=== PATIENT | male | born 1935 | race Caucasian/White ===

== ENCOUNTER 2019-06-14 10:44 | Observation (INO) | payer OTHER ==
[~2019-06-14] VITALS: Ht 170.2 cm; Wt 69.9 kg
[~2019-06-14 10:44] MED LIST: ACETAMINOPHEN500 MG PO; ASA325 PO; CARVEDILOL3.125 MG PO; CREON PO; DICYCLOMINE PO; NEXIUM40 MG PO; NIFEDIPINE ER30 M1 PO; NRC7.5T PO; OMEPRAZOLE40 MG PO; PRILOSEC40 MG PO; ULTRAM50 MG PO; Z.0.LISINOPRIL40 MG PO
[2019-06-14] MEDS ORDERED: SODIUM CHLORIDE 0.9% 1000ML 1,000 ML IV STA (10:54)
[2019-06-14 11:38] LABS: BASOPHILS # (AUTO) 0.1 (0.0-0.1); BASOPHILS % 0.6 % (0.0-1.0); EOSINOPHILS # (AUTO) 0.3 (0.0-0.4); EOSINOPHILS % 3.3 % (0.0-6.0); HEMATOCRIT 34.9 % (38.2-49.6); HEMOGLOBIN 11.7 g/dL (14.0-18.0); LYMPHOCYTES # (AUTO) 2.9 (1.0-3.2); LYMPHOCYTES % 34.8 % (18.0-39.1); MEAN CORPUSCULAR HEMOGLOBIN 29.7 pg (28-32); MEAN CORPUSCULAR HGB CONC 33.5 g/dL (31-35); MEAN CORPUSCULAR VOLUME 88.6 fL (81-99); MONOCYTES # (AUTO) 0.8 (0.2-0.8); MONOCYTES % 9.6 % (4.4-11.3); NEUTROPHILS # (AUTO) 4.3 (2.1-6.9); NEUTROPHILS % 51.3 % (38.7-80.0); PLATELET COUNT 316 x10e3/uL (140-360); RED BLOOD COUNT 3.94 x10e6/uL (4.3-5.7); RED CELL DISTRIBUTION WIDTH 12.8 % (11.7-14.4)
[2019-06-14 11:50] LABS: INR 0.98; PROTHROMBIN TIME 13.5 seconds (11.9-14.5)
[2019-06-14 11:51] LABS: PARTIAL THROMBOPLASTIN TIME 28.5 seconds (23.8-35.5)
[2019-06-14 11:59] LABS: ALBUMIN/GLOBULIN RATIO 0.8 (0.8-2.0); ANION GAP 16.3 mmol/L (8-16); CALCIUM 8.8 mg/dL (8.4-10.2); CREATININE, SERUM 1.41 mg/dL (0.72-1.25); POTASSIUM 3.3 mmol/L (3.5-5.1)
[2019-06-14 12:07] LABS: CREATINE KINASE MB 1.1 ng/mL (0-5.0)
[2019-06-14] MEDS: SODIUM CHLORIDE 0.9% 1000ML 1,000 ML IV SCH ×3 (12:15→19:31)
[2019-06-14] MEDS ORDERED: SODIUM CHLORIDE 0.9% 50ML 50 ML ONE (12:39)
[2019-06-14] MEDS ORDERED: IOPAMIDOL 370 MG/ML 200 ML INFUS..BTL INJ ONE (12:39)
--- NOTE | 2019-06-14 12:41 | Diagnostic Imaging Report ---
EXAMINATION: CHEST SINGLE (PORTABLE) INDICATION: ^ERMD ORDER ^[id number] ^1125 ^Y COMPARISON: Chest radiograph 03/24/2009 FINDINGS: AP view TUBES and LINES: None. LUNGS: Lungs are well inflated. Lungs are clear. There is no evidence of pneumonia or pulmonary edema. PLEURA: No pleural effusion or pneumothorax. HEART AND MEDIASTINUM: The cardiac silhouette is unremarkable. Tortuous thoracic aorta remains unchanged. BONES AND SOFT TISSUES: No acute osseous lesion. Soft tissues are unremarkable. UPPER ABDOMEN: No free air under the diaphragm. IMPRESSION: No acute thoracic abnormality. Signed by: Dr. Annelise Macias M.D. on 06/14/2019 12:37 PM
--- NOTE | 2019-06-14 14:45 | Diagnostic Imaging Report ---
EXAM: CT Abdomen and Pelvis WITH contrast INDICATION: ^ORDER PLACED BY ^[id number] ^1303 COMPARISON: None. TECHNIQUE: Abdomen and pelvis were scanned utilizing a multidetector helical scanner from the lung base to the pubic symphysis after administration of IV contrast. Coronal and sagittal reformations were obtained. Routine protocol was performed. Scan was performed when during portal venous phase. IV CONTRAST: 100 mL of Isovue-370 ORAL CONTRAST: None RADIATION DOSE: Total DLP: 2316.1 mGy*cm Estimated effective dose: (DLP x 0.015 x size factor) mSv COMPLICATIONS: None FINDINGS: LINES and TUBES: None. LOWER THORAX: Small hiatal hernia. Coronary artery calcifications. Lung bases are clear. HEPATOBILIARY: No focal hepatic lesions. No biliary ductal dilation. GALLBLADDER: Cholecystectomy. SPLEEN: No splenomegaly. PANCREAS: No focal masses or ductal dilatation. ADRENALS: No adrenal nodules KIDNEYS/URETERS: Mild cortical scarring of the right kidney. Kidneys enhance symmetrically. No hydronephrosis. Multiple bilateral renal cysts measuring up to 1.7 cm on the right and 1.7 cm on the left. Most of the series appear benign on series 6, image 35. No stones. GI TRACT: No abnormal distention, wall thickening, or evidence of bowel obstruction. Scattered diverticulosis throughout the colon without diverticulitis. Appendix is normal. PELVIC ORGANS/BLADDER: Severe distention of the urinary bladder, which extends into the upper abdomen at midline. There are multiple surgical clips at the level of the prostate. LYMPH NODES: No lymphadenopathy. VESSELS: Mild scattered atherosclerotic calcifications of the abdominal aorta and pelvic arteries with no aneurysm. PERITONEUM / RETROPERITONEUM: No free air or fluid. BONES: Status post right hip replacement. No destructive lytic or blastic lesions in the abdomen and pelvis. Moderate degenerative changes at L3-L4. SOFT TISSUES: Surgical clips in both scrotal sacs with associated small to moderate fat-containing inguinal hernias. IMPRESSION: 1. Surgical clips in the region of the prostate. Severe distention of the urinary bladder may represent the cause of this patient's abdominal pain. 2. Multiple bilateral renal cysts, most of them simple in appearance, except for a hyperdense cyst in the inferior right kidney that can be follow-up with CT or MRI with and without contrast renal mass protocol. 3. Scattered diverticulosis throughout the colon without diverticulitis. Signed by: Karena Sanford.D. on 06/14/2019 2:42 PM
[2019-06-14 15:05] LABS: AMPHETAMINES SCREEN,URINE NEGATIVE (NEGATIVE); BENZODIAZEPINES SCREEN,URINE NEGATIVE (NEGATIVE); PHENCYCLIDINE SCREEN,URINE NEGATIVE (NEGATIVE)
[2019-06-14 15:07] LABS: CLARITY,URINE SL CLOUDY (CLEAR); COLOR,URINE YELLOW (YELLOW); LEUKOCYTE ESTERASE ,URINE NEGATIVE (NEGATIVE); NITRITE,URINE NEGATIVE (NEGATIVE); PROTEIN,URINE DIPSTICK NEGATIVE (NEGATIVE)
[2019-06-14 15:08] LABS: BILIRUBIN,URINE NEGATIVE (NEGATIVE); KETONES,URINE NEGATIVE (NEGATIVE); RBC,URINE >50 /HPF (0-5); URINE UROBILINOGEN 0.2 mg/dL (0.2 - 1); WBC,URINE (MAN) 0-5 /HPF (0-5)
[2019-06-14 15:09] LABS: BACTERIA,URINE FEW /HPF
[2019-06-14 16:51] VITALS: BP 165/81
[2019-06-14 17:30] VITALS: BP 165/81
--- NOTE | 2019-06-14 17:49 | Diagnostic Imaging Report ---
Complete set of images made available for interpretation on 06/14/2019 5:40 PM. EXAMINATION: Head CT HISTORY: Dizziness COMPARISON: None. TECHNIQUE: Multidetector axial images were obtained without contrast from the foramen magnum to the vertex . The images were reconstructed using brain and bone algorithms. Thin section brain images were reformatted into coronal and sagittal planes. Image quality: Motion/streaking artifact limits the evaluation of the skull base and posterior cranial fossa. Dose modulation, iterative reconstruction, and/or weight based adjustment of the mA/kV was utilized to reduce the radiation dose to as low as reasonably achievable. FINDINGS: Parenchyma: 1. Few scattered and moderate confluent periventricular matter hypodensities, most likely nonspecific chronic microvascular ischemic changes. 2. No mass or hemorrhage. No CT evidence of acute territorial vascular insult. Extra-axial spaces:No abnormal density. No extra-axial fluid collections Brain volume: Normal for age. Ventricles: No hydrocephalus or displacement. Arteries: No density suggestive of thrombus. Dural sinuses: No abnormal density. Extra-axial spaces: No abnormal density. Foramen magnum: No mass, Chiari malformation, or basilar invagination. Sella: Mildly enlarged, due to an approximately 2 cm superior to inferior x 1.5 cm AP diameter lesion centered on the right side of the sella extending into the right sphenoid sinus and possibly within the right cavernous sinus, which may correspond to a pituitary microadenoma, no definite suprasellar extension is seen at this time. Paranasal/mastoid sinuses: Imaged portions unremarkable. Skull/Scalp: No lytic or blastic lesions. No fractures. IMPRESSION: 1. No acute intracranial abnormalities. 2. Mild chronic microvascular ischemic changes. 3. 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 Signed by: Dr. Ana Brannon M.D. on 06/14/2019 5:46 PM
[2019-06-14 18:23] LABS: CREATINE KINASE MB 1.5 ng/mL (0-5.0)
[2019-06-14 20:34] VITALS: BP 166/79
--- NOTE | 2019-06-14 20:42 | NUR ---
Spoke with Dr. Carter concerning patient's elevated blood pressure. Dr. Carter states that's fine. No new orders. Will continue to monitor.
[2019-06-14 21:47] VITALS: BP 166/79
[2019-06-15] VITALS (8 sets, daily range): BP systolic 152–187; BP diastolic 72–87
[2019-06-15 06:53] LABS: CREATINE KINASE MB 1.8 ng/mL (0-5.0)
--- NOTE | 2019-06-15 07:00 | NUR ---
BEDSIDE SHIFT REPORT RECEIVED FROM FLAP CURER RN. PT DENIES NEEDS AT THIS TIME.
[2019-06-15] MEDS ORDERED: NIFEDIPINE CR 30 MG TAB PO ONE (07:45)
--- NOTE | 2019-06-15 11:09 | History and Physical ---
PRIMARY CARE PHYSICIAN: Dr. Andrea Jesus. CHIEF COMPLAINT: Syncope, bradycardia, urinary retention, and generalized weakness. HISTORY OF PRESENT ILLNESS: An 84-year-old male, who came in with generalized weakness and low heart rate in the 50-60. The patient was on beta-gm. He is also found to have urinary retention. The patient has prostatectomy completely x2 years ago due to presence of prostate cancer. When he came in, he was retention and Dawkins catheter placed. The patient is doing a little bit better, but he is feeling weak. 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 The patient has also had multiple renal cysts. He has had Dawkins catheter placed now. He is stable. PAST MEDICAL HISTORY: Prostate cancer with radical prostatectomy, hypertension, and osteoarthritis. PAST SURGICAL HISTORY: Revision of right total hip arthroplasty and right total hip replacement, prostatectomy. SOCIAL HISTORY: The patient used to drink, but he quit many years ago. He does not smoke. No recreational drug use. ALLERGIES: NO KNOWN ALLERGIES. HOME MEDICATIONS: Nifedipine and questionable metoprolol. PHYSICAL EXAMINATION: VITAL SIGNS: Temperature is 96, blood pressure 186/86, pulse rate 56, and respiration 18. GENERAL: The patient is in no acute distress. He is awake. HEENT: Normocephalic and atraumatic. He is anicteric. NECK: Supple grossly. PULMONARY: Clear. CARDIOVASCULAR: Regular rate and rhythm. ABDOMEN: Soft. EXTREMITIES: No cyanosis or edema. Dawkins catheter in place. NEUROLOGIC: No focal deficit. LABORATORY DATA: Sodium is 141, potassium 3.3, chloride 106, bicarb 22, BUN 18, creatinine 0.4, and glucose 173. WBC 8.4, hemoglobin 11.7, hematocrit 34.5, and platelets is 316. IMPRESSION: 1. Urinary retention, may contribute to the patient's symptom of weakness and bradycardia with his syncope, but did not have any loss of consciousness. 2. Bradycardia, may be chronic. 3. Baseline hypertension. 4. Osteoarthritis. 5. 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 PLAN: MRI of the brain without contrast. Pituitary protocol. Repeat lab work. Blood pressure control. Consultation with Dr. Edward Millan. We will obtain a 2D echocardiogram. We will check the patient's hemoglobin A1c due to increase in blood sugar and also check the patient's TSH. MD VANESSA Daly /[id number]
[2019-06-15] MEDS: NIFEDIPINE CR 30 MG TAB PO SCH (20:12)
--- NOTE | 2019-06-15 20:52 | Consultation ---
DATE OF CONSULTATION: 06/15/2019 Urology Consultation Consultation is called by Dr. Carter. CHIEF COMPLAINT/REASON FOR CONSULTATION: Prostate cancer, urinary retention. HISTORY OF PRESENT ILLNESS: Mr. Peña is an 84-year-old male patient, who is noncompliant. He and his are in the room and are confusing historians at best. They state that he had a prostatectomy in [address] Millan did another surgery approximately 10 years ago. When the prostate was removed, he has not followed up and was last seen by Dr. Millan in January 2014. The patient denied any dysuria, denied any hematuria, was in urinary retention for over 1000 mL. PAST MEDICAL HISTORY: As above. Hypertension, diabetes mellitus, right total hip replacement. In the last clinic visit from Dr. Millan, there was a diagnosis of urethral stricture disease, prostate cancer, as well as BPH indicating the patient did not have the prostatectomy. MEDICATIONS: Please see MAR. ALLERGIES: NKDA. SOCIAL HISTORY: Denied smoking or drinking. FAMILY HISTORY: Denied urologic stones or malignancies. REVIEW OF SYSTEMS: Noncontributory, other than problems mentioned above for 12 organ systems. PHYSICAL EXAMINATION: GENERAL: Elderly male, in no acute distress. VITAL SIGNS: Currently, temperature 97.3, pulse 53, respirations 16, and blood pressure 175/83. HEENT: Sclerae anicteric. NECK: Supple. BACK: Without costovertebral angle tenderness bilaterally. ABDOMEN: Soft. It is nontender. It is nondistended. There is no palpable mass. No palpable hernias. No palpable groin adenopathy. GENITOURINARY: Normal male external genitalia. Dawkins catheter draining clear urine. EXTREMITIES: No edema. NEUROLOGIC: Moves all four extremities. PSYCHIATRIC: Alert and mood appropriate. SKIN: Intact. Normal color. PERTINENT LABORATORY DATA: Sodium 141, potassium 3.3, chloride 106, bicarb 22, BUN 18, creatinine 0.41, and glucose 173. Hemoglobin 11.7, hematocrit 34.5, platelet count 316,000, and white cell count 8000. IMPRESSION: 1. Prostate cancer. 2. Urethral stricture disease. 3. Urinary retention. 4. Hypertension. 5. Acute on chronic renal failure. 6. Hypokalemia. 7. Anemia. PLAN: Do not discontinue the Dawkins catheter noncompliance, consider imaging, elective cystoscopy. Thank you for allowing me to participate in the care of your patient. MD RICKY Ayala/MODL /[id number] cc: Blaise Carter MD
[2019-06-16] VITALS: BP 162/74
[2019-06-16 04:00] VITALS: BP 154/77
[2019-06-16 06:10] LABS: ALBUMIN 3.1 g/dL (3.5-5.0); ALBUMIN/GLOBULIN RATIO 0.7 (0.8-2.0); ANION GAP 13.5 mmol/L (8-16); CALCIUM 8.9 mg/dL (8.4-10.2); CHOL/HDL RATIO 5.6 (3.9-4.7); CREATININE, SERUM 1.23 mg/dL (0.72-1.25); POTASSIUM 3.5 mmol/L (3.5-5.1)
[2019-06-16 07:40] VITALS: BP 147/81
[2019-06-16 08:00] VITALS: BP 147/81
[2019-06-16] MEDS ORDERED: CEFTRIAXONE SOD 1 GM/NS 50 ML 50 ML IV SCH (09:00)
[2019-06-16] MEDS ORDERED: FAMOTIDINE 20 MG TAB PO SCH (09:00)
[2019-06-16] MEDS ORDERED: MAGNESIUM/ALUMINUM/SIMETHICONE 30 ML UDC PO SCH (09:00)
[2019-06-16] MEDS: NIFEDIPINE CR 30 MG TAB PO SCH (09:00)
[2019-06-16] MEDS ORDERED: PEPCID40 MG PO (09:02)
[2019-06-16] MEDS ORDERED: CIPRO250 MG PO (09:02)
[2019-06-16] MEDS ORDERED: TYLENOL # 31 EA PO (09:04)
[2019-06-16] MEDS ORDERED: ZOFRAN4 MG PO (09:04)
[2019-06-16] MEDS ORDERED: BISACODYL 10 MG SUPP PR ONE (11:00)
--- NOTE | 2019-06-16 11:05 | NUR ---
referral to outside md review group - md group suggesting outpatient
[2019-06-16 11:11] VITALS: BP 167/83
[2019-06-16 11:13] VITALS: BP 167/83
--- NOTE | 2019-06-16 13:08 | Diagnostic Imaging Report ---
MRI BRAIN WO HISTORY: Syncope COMPARISON: Head CT 06/14/2019 TECHNIQUE: Sagittal T2, axial T2, axial T1, axial T2/FLAIR, axial gradient echo (or susceptibility weighted), coronal T2/FLAIR, and axial diffusion weighted MR images of the brain were obtained without contrast. DISCUSSION: Scalp/bone marrow: Unremarkable. Brain sulci: Prominent. Ventricles: Compensatory dilatation. Sellar/Suprasellar region: Approximately 1.9 x 2.1 x 2.7 cm (sagittal by AP by transverse) slightly T2 hyperintense sellar mass expands the sella and slightly bulges into the suprasellar cistern. There is no significant mass effect on the optic chiasm. There is likely invasion of the right cavernous sinus. The pituitary stalk appears to be deviated towards the left Extra-axial spaces: No additional masses or fluid collections. Parenchyma: Scattered T2/FLAIR hyperintense foci throughout the supratentorial white matter and jadyn are likely chronic microvascular ischemic changes. Otherwise, no hemorrhage, or acute vascular insults. Vessels: Normal flow voids in major arteries and veins. Craniocervical junction: No abnormalities. Incidental findings: None. IMPRESSION: 1. No acute intracranial abnormalities. 2. 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 There is likely invasion of the right cavernous sinus. No significant mass effect on the optic chiasm. 3. Moderate supratentorial/pontine chronic microvascular ischemic change. 4. Mild generalized cerebral volume loss. Signed by: Dr. Hebert Snow M.D. on 06/16/2019 1:04 PM
--- NOTE | 2019-06-16 14:10 | NUR ---
pt discharged at this time. Pt is able to verbalize understanding of all discharge instructions and all follow up appointments. denies any pain at time of discharge. Pt demonstrated cole catheter care properly.
--- OUTSIDE RECORDS SUMMARY | 2019-06-20 12:02 | XMS REPORT ---
Author Author [facility] Address Unknown Phone Unavailable Care Team Providers Care Aircraft Servicer Name Role Phone DEBI SANDOVAL Unavailable Unavailable Problems This patient has no known problems. Allergies, Adverse Reactions, Alerts This patient has no known allergies or adverse reactions. Medications This patient has no known medications. Results Test Description Test Time Test Comments Text Results Atomic Results Result Comments MRI BRAIN WO 2019-06-16 12:58:00 [place] [address] Patient Name: RIKKI REID MR #: [id number] : 1935 Age/Sex: 84/M Req #: [id number] Adm Physician: DEBI SANDOVAL MD Ordered by: DEBI SANDOVAL MD Report #: [id number] Location: MED/SURG Room/Bed: [facility] Procedure: [id number] MRI/MRI BRAIN WO Exam Date: Exam Time: REPORT STATUS: Signed MRI BRAIN WO HISTORY: Syncope COMPARISON: Head CT 06/14/2019 TECHNIQUE: Sagittal T2, axial T2, axial T1, axial T2/FLAIR, axial gradient echo (or susceptibility weighted), coronal T2/FLAIR, and axial diffusion weighted MR images of the brain were obtained without contrast. DISCUSSION: Scalp/bone marrow: Unremarkable. Brain sulci: Prominent. Ventricles: Compensatory dilatation. Sellar/Suprasellar region: Approximately 1.9 x 2.1 x 2.7 cm (sagittal by AP by transverse) slightly T2 hyperintense sellar mass expands the sella and slightly bulges into the suprasellar cistern. There is no significant mass effect on the optic chiasm. There is likely invasion of the right cavernous sinus. The pituitary stalk appears to be deviated towards the left Extra-axial spaces: No additional masses or fluid collections. Parenchyma: Scattered T2/FLAIR hyperintense foci throughout the supratentorial white matter and jadyn are likely chronic microvascular ischemic changes. Otherwise, no hemorrhage, or acute vascular insults. Vessels: Normal flow voids in major arteries and veins. Craniocervical junction: No abnormalities. Incidental findings: None. IMPRESSION: 1. No acute intracranial abnormalities. 2. 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 There is likely invasion of the right cavernous sinus. No significant mass effect on the optic chiasm. 3. Moderate supratentorial/pontine chronic microvascular ischemic change. 4. Mild generalized cerebral volume loss. Signed by: Dr. Hebert Snow M.D. on 06/16/2019 1:04 PM Dictated By: HEBERT SNOW MD 1304 Transcribed By: ANDRIY on 06/16/19 1304 COPY TO: DEBI SANDOVAL MD CT BRAIN WO 2019-06-14 17:43:00 [place] [address] Patient Name: RIKKI REID MR #: [id number] : 1935 Age/Sex: 84/M Req #: [id number] Adm Physician: DEBI SANDOVAL MD Ordered by: MARCIA PARSONS MANAGER BUSINESS INTELLIGENCE Report #: [id number] Location: MED/SURG Room/Bed: [facility] Procedure: [id number] CT/CT BRAIN WO Exam Date: 06/14/19 Exam Time: 1253 REPORT STATUS: Signed Complete set of images made available for interpretation on 08/15/2018 5:40 PM. EXAMINATION: Head CT HISTORY: Dizziness COMPARISON: None. TECHNIQUE: Multidetector axial images were obtained without contrast from the foramen magnum to the vertex . The images were reconstructed using brain and bone algorithms. Thin section brain images were reformatted into coronal and sagittal planes. Image quality: Motion/streaking artifact limits the evaluation of the skull base and posterior cranial fossa. Dose modulation, iterative reconstruction, and/or weight based adjustment of the mA/kV was utilized to reduce the radiation dose to as low as reasonably achievable. FINDINGS: Parenchyma: 1. Few scattered and moderate confluent periventricular matter hypodensities, most likely nonspecific chronic microvascular ischemic changes. 2. No mass or hemorrhage. No CT evidence of acute territorial vascular insult. Extra- axial spaces:No abnormal density. No extra-axial fluid collections Brain volume: Normal for age. Ventricles: No hydrocephalus or displacement. Arteries: No density suggestive of thrombus. Dural sinuses: No abnormal density. Extra-axial spaces: No abnormal density. Foramen magnum: No mass, Chiari malformation, or basilar invagination. Sella: Mildly enlarged, due to an approximately 2 cm superior to inferior x 1.5 cm AP diameter lesion centered on the right side of the sella extending into the right sphenoid sinus and possibly within the right cavernous sinus, which may correspond to a pituitary microadenoma, no definite suprasellar extension is seen at this time. Paranasal/mastoid sinuses: Imaged portions unremarkable. Skull/Scalp: No lytic or blastic lesions. No fractures. IMPRESSION: 1. No acute intracranial abnormalities. 2. Mild chronic microvascular ischemic changes. 3. 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 Signed by: Dr. Ingrid Brannon M.D. on 06/14/2019 5:46 PM Dictated By: INGRID BRANNON MD 45 Transcribed By: ANDRIY on 06/14/191745 COPY TO: MARCIA PARSONS NP CT ABDOMEN/PELVIS W 2019-06-14 14:31:00 [facility] [address] [place] [address] Patient Name: RIKKI REID MR #: [id number] : 1935 Age/Sex: 84/M Req #: [id number] Adm Physician: DEBI SANDOVAL MD Ordered by: MARCIA PARSONS NP Report #: [id number] Location: [facility] Room/Bed: [place] [address] Procedure: [id number] CT/CT ABDOMEN/PELVIS W Exam Date: 06/14/19 Exam Time: 1303 REPORT STATUS: Signed EXAM: CT Abdomen and Pelvis WITH contrast INDICAT ION: ORDER PLACED BY [id number] COMPARISON: None. TECHNIQUE: Abdomen and pelvis were scanned utilizing a multidetector helical scanner from the lung base to the pubic symphysis after administration of IV contrast. Coronal and sagittal reformations were obtained. Routine protocol was performed. Scan was performed when during portal venous phase. IV CONTRAST: 100 mL of Isovue-370 ORAL CONTRAST: None RADIATION DOSE: Total DLP: 2316.1 mGy*cm Estimated effective dose: (DLP x 0.015 x size factor) mSv COMPLICATIONS: None FINDINGS: LINES and TUBES: None. LOWER THORAX: Small hiatal hernia. Coronary artery calcifications. Lung bases are clear. HEPATOBILIARY: No focal hepatic lesions. No biliary ductal dilation. GALLBLADDER: Cholecystectomy. SPLEEN: No splenomegaly. PANCREAS: No focal masses or ductal dilatation. ADRENALS: No adrenal nodules KIDNEYS/URETERS: Mild cortical scarring of the right kidney. Kidneys enhance symmetrically. No hydronephrosis. Multiple bilateral renal cysts measuring up to 1.7 cm on the right and 1.7 cm on the left. Most of the series appear benign on series 6, image 35. No stones. GI TRACT: No abnormal distention, wall thickening, or evidence of bowel obstruction. Scattered diverticulosis throug hout the colon without diverticulitis. Appendix is normal. PELVIC ORGANS/BLADDER: Severe distention of the urinary bladder, which extends into the upper abdomen at midline. There are multiple surgical clips at the level of the prostate. LYMPH NODES: No lymphadenopathy. VESSELS: Mild scattered atherosclerotic calcifications of the abdominal aorta and pelvic arteries with no aneurysm. PERITONEUM / RETROPERITONEUM: No free air or fluid. BONES: Status post right hip replacement. No destructive lytic or blastic lesions in the abdomen and pelvis. Moderate degenerative changes at L3-L4. SOFT TISSUES: Surgical clips in both scrotal sacs with associated small to moderate fat-containing inguinal hernias. IMPRESSION: 1. Surgical clips in the region of the prostate. Severe distention of the urinary bladder may represent the cause of this patient's abdominal pain. 2. Multiple bilateral renal cysts, most of them simple in appearance, except for a hyperdense cyst in the inferior right kidney that can be follow-up with CT or MRI with and without contrast renal mass protocol. 3. Scattered diverticulosis throughout the colon without diverticulitis. Signed by: Dr. Nicolas Holden M.D. on 06/14/2019 2:42 PM Dictated By: NICOLAS HOLDEN MD 1442 Transcribed By: ANDRIY on 06/14/19 1442 COPY TO: MARCIA PARSONS NP CHEST SINGLE (PORTABLE) 2019-06-14 12:36:00 [place] [address] Patient Name: RIKKI REID MR #: [id number] : 1935 Age/Sex: 84/M Req #: [id number] Adm Physician: Ordered by: MARCIA PARSONS NP Report #: [id number] Location: ER Room/Bed: Procedure: [id number] DX/CHEST SINGLE (PORTABLE) Exam Date: 06/14/19 Exam Time: 1125 REPORT STATUS: Signed EXAMINATION: CHEST SINGLE (PORTABLE) IN DICATION: ERMD ORDER [id number] 1125 Y COMPARISON: Chest radiograph 03/24/2009 FINDINGS: AP view TUBES and LINES: None. LUNGS: Lungs are well inflated. Lungs are clear. There is no evidence of pneumonia or pulmonary edema. PLEURA: No pleural effusion or pneumothorax. HEART AND MEDIASTINUM: The cardiac silhouette is unremarkable. Tortuous thoracic aorta remains unchanged. BONES AND SOFT TISSUES: No acute osseous lesion. Soft tissues are unremarkable. UPPER ABDOMEN: No free air under the diaphragm. IMPRESSION: No acute thoracic abnormality. Signed by: Dr. Nicolas Holden M.D. on 06/14/2019 12:37 PM Dictated By: NICOLAS HOLDEN MD 1237 Transcribed By: ANDRIY on 06/14/19 1237 COPY TO: MARCIA PARSONS NP
== END 2019-06-16 14:11 | disposition home or self-care (01) ==
LOC: ER 10:44 → ERHOLD 14:41 → MED/SURG 15:50
PROVIDERS: ADMIT Internal Medicine; ATTEND Internal Medicine
DX: R33.8 Other retention of urine (principal); R00.1 Bradycardia, unspecified; R33.9 Retention of urine, unspecified; M19.90 Unspecified osteoarthritis, unspecified site; D35.2 Benign neoplasm of pituitary gland; C61 Malignant neoplasm of prostate; N17.9 Acute kidney failure, unspecified; E87.6 Hypokalemia; N35.919 Unspecified urethral stricture, male, unspecified site; I12.9 Hypertensive chronic kidney disease with stage 1 through stage 4 chronic kidney disease, or unspecified chronic kidney disease; N18.9 Chronic kidney disease, unspecified; K59.00 Constipation, unspecified
CPT/HCPCS: 36415 ×3; 51700; 70450; 70551; 71045; 74177; 80053 ×2; 80061; 80307; 80320; 81001; 82140; 82550 ×2; 82553 ×2; 82607; 83036; 84443; 84484 ×2; 85025; 85610; 85730; 87086; 93005; 93306; 93880; 99285; G0378 ×3; J0696; J7030; Q9967

== ENCOUNTER → 2019-12-03 | Day surgery (SDC) | payer MEDICARE, OTHER ==
--- NOTE | 2019-11-28 17:38 | Diagnostic Imaging Report ---
Examination: PA and lateral view of the chest. COMPARISON: None. INDICATION: Preoperative evaluation DISCUSSION: Lines/tubes: None. Lungs: The lungs are well inflated and clear. No pneumonia or pulmonary edema. Pleura: No pleural effusion or pneumothorax. Heart and mediastinum: The heart and the mediastinum are unremarkable. Bones and soft tissues: No acute bony abnormalities. IMPRESSION: 1. No acute cardiopulmonary abnormalities. Signed by: Dr. Montrell Chino M.D. on 11/28/2019 5:35 PM
[2019-11-28 17:44] LABS: BASOPHILS # (AUTO) 0.1 (0.0-0.1); BASOPHILS % 0.9 % (0.0-1.0); EOSINOPHILS # (AUTO) 0.3 (0.0-0.4); EOSINOPHILS % 3.3 % (0.0-6.0); HEMATOCRIT 36.9 % (38.2-49.6); HEMOGLOBIN 12.2 g/dL (14.0-18.0); LYMPHOCYTES % 26.1 % (18.0-39.1); MEAN CORPUSCULAR HEMOGLOBIN 29.8 pg (28-32); MEAN CORPUSCULAR HGB CONC 33.1 g/dL (31-35); MEAN CORPUSCULAR VOLUME 90.2 fL (81-99); MONOCYTES # (AUTO) 0.8 (0.2-0.8); MONOCYTES % 10.4 % (4.4-11.3); NEUTROPHILS # (AUTO) 4.6 (2.1-6.9); NEUTROPHILS % 58.8 % (38.7-80.0); PLATELET COUNT 297 x10e3/uL (140-360); RED BLOOD COUNT 4.09 x10e6/uL (4.3-5.7); RED CELL DISTRIBUTION WIDTH 13.7 % (11.7-14.4)
[2019-11-28 18:02] LABS: ANION GAP 14.9 mmol/L (8-16); CALCIUM 9.4 mg/dL (8.4-10.2); CREATININE, SERUM 1.52 mg/dL (0.72-1.25); POTASSIUM 3.9 mmol/L (3.5-5.1)
[~2019-12-03] MED LIST changes: +ATROPINE SULFATE 1 MG/ML VIAL ONE; +BUPIVACAINE 0.25% 30ML SDV INJ ONE; +BUPIVACAINE 0.25%/EPI 30ML SDV INJ ONE; +CEFAZOLIN SOD 1 GM VIAL ONE; +CIPRO250 MG PO; +DEXAMETHASONE SOD PHOS INJ 4 MG/ML VIAL ONE; +ETOMIDATE 2 MG/ML 10 ML INJ IV ONE; +FENTANYL CITRATE/PF 100MCG/2 ML INJ ONE; +MIDAZOLAM HCL 2 MG/2 ML VIAL ONE; +NEOSTIGMINE 1 MG/ML 10ML VIAL ONE; +ONDANSETRON HCL INJ 2MG/ML 2ML 2 MG/ML VIAL ONE; +PEPCID40 MG PO; +ROCURONIUM BROMIDE 10 MG/ML 5ML VIAL IV ONE; +SEVOFLURANE INHAL SOLN 250 ML PEN BTL ONE; +TUMS200 MG PO; +TYLENOL # 31 EA PO; +ZOFRAN4 MG PO
--- NOTE | 2019-12-03 07:10 | NUR ---
SPIRITUAL CARE - Pre-Surgery Assessment: Pt in bed. Pt's at bedside. Pt reported supportive attention from family and friends. Intervention: I provided pastoral presence, hospitality, and sympathetic listening. I acquainted pt with availability of sales branch manager while hospitalized. Outcome: Pt expressed appreciation for visit. No need for follow up indicated at this time. RAFAELA Duboislain Spiritual Care Department O: [phone]
[2019-12-03 10:55] VITALS: BP 153/73
--- NOTE | 2019-12-03 16:40 | Operative Report ---
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 Pending permanent section. OPERATION PERFORMED: Wide excision and full thickness excision of melanoma of the left ear with rotational flap closure. MACHINE STAMPER: FACUNDO Pop. ANESTHESIA: General. COMPLICATIONS: None. ESTIMATED BLOOD LOSS: Minimal. DESCRIPTION OF PROCEDURE: With the patient lying in bed in the supine position under good general anesthesia, the left face and the ear were prepped with Betadine solution and draped in the usual manner. The previous biopsy site and the border of the superior part of the helix of the left ear was identified, there was eschar with no longer any kind of pigmented lesion left, just a scar left behind the patient and had the previous resection that showed positive margins in all directions, so a wide pi-shape area full thickness of the ear was then taken front to back, resecting the cartilage, then completely excising the area. This was then labeled in all directions and was sent for pathological examination. Once this was done, the flaps were then developed in all directions to be able to reapproximate the defect. Hemostasis was ascertained. The cartilage was then reapproximated with interrupted sutures of 4-0 Vicryl. Subcutaneous tissue was approximated with 4-0 chromic and the skin was closed with interrupted sutures of 6-0 nylon. A dressing was applied. The sponge, lap, and needle counts were correct. The patient tolerated the procedure well and returned to the recovery room in stable condition. Conor Garvin MD JLR/MODL /[id number]
== END | disposition home or self-care (01) ==
LOC: OR 06:26
PROVIDERS: ATTEND Surgery
DX: C43.22 Malignant melanoma of left ear and external auricular canal (principal); Z01.810 Encounter for preprocedural cardiovascular examination; Z01.812 Encounter for preprocedural laboratory examination; Z01.811 Encounter for preprocedural respiratory examination; Z11.59 Encounter for screening for other viral diseases; Z85.46 Personal history of malignant neoplasm of prostate; I12.9 Hypertensive chronic kidney disease with stage 1 through stage 4 chronic kidney disease, or unspecified chronic kidney disease; N18.9 Chronic kidney disease, unspecified
CPT/HCPCS: 11642; 36415; 71046; 80048; 85025; 87635; 88305; 93005; J0461; J0690; J1100; J2250; J2405; J2710; J3010

== ENCOUNTER 2020-09-09 13:06 | Observation (INO) | payer MEDICARE ==
[~2020-09-09] VITALS: Ht 170.2 cm; Wt 72.6 kg
[~2020-09-09 13:06] MED LIST changes: -ATROPINE SULFATE 1 MG/ML VIAL ONE; -BUPIVACAINE 0.25% 30ML SDV INJ ONE; -BUPIVACAINE 0.25%/EPI 30ML SDV INJ ONE; -CEFAZOLIN SOD 1 GM VIAL ONE; -DEXAMETHASONE SOD PHOS INJ 4 MG/ML VIAL ONE; -ETOMIDATE 2 MG/ML 10 ML INJ IV ONE; -FENTANYL CITRATE/PF 100MCG/2 ML INJ ONE; -MIDAZOLAM HCL 2 MG/2 ML VIAL ONE; -NEOSTIGMINE 1 MG/ML 10ML VIAL ONE; -ONDANSETRON HCL INJ 2MG/ML 2ML 2 MG/ML VIAL ONE; -ROCURONIUM BROMIDE 10 MG/ML 5ML VIAL IV ONE; -SEVOFLURANE INHAL SOLN 250 ML PEN BTL ONE
[2020-09-09] MEDS ORDERED: ONDANSETRON HCL INJ 2MG/ML 2ML 2 MG/ML VIAL IV STA (13:28)
[2020-09-09] MEDS ORDERED: MORPHINE SULFATE INJ 4 MG/ML INJ 1ML IV PRN (13:30)
[2020-09-09 13:36] LABS: BASOPHILS % 0.5 % (0.0-1.0); EOSINOPHILS # (AUTO) 0.1 (0.0-0.4); EOSINOPHILS % 1.4 % (0.0-6.0); HEMATOCRIT 34.3 % (38.2-49.6); HEMOGLOBIN 11.3 g/dL (14.0-18.0); LYMPHOCYTES # (AUTO) 0.9 (1.0-3.2); LYMPHOCYTES % 11.1 % (18.0-39.1); MEAN CORPUSCULAR HEMOGLOBIN 29.2 pg (28-32); MEAN CORPUSCULAR HGB CONC 32.9 g/dL (31-35); MEAN CORPUSCULAR VOLUME 88.6 fL (81-99); MONOCYTES # (AUTO) 0.9 (0.2-0.8); MONOCYTES % 11.2 % (4.4-11.3); NEUTROPHILS # (AUTO) 6.3 (2.1-6.9); NEUTROPHILS % 75.4 % (38.7-80.0); PLATELET COUNT 305 x10e3/uL (140-360); RED BLOOD COUNT 3.87 x10e6/uL (4.3-5.7); RED CELL DISTRIBUTION WIDTH 12.9 % (11.7-14.4)
[2020-09-09 13:55] LABS: ALANINE AMINOTRANSFERASE 6 IU/L (0-55); ALBUMIN 3.1 g/dL (3.5-5.0); ALBUMIN/GLOBULIN RATIO 0.7 (0.8-2.0); ALKALINE PHOSPHATASE 45 IU/L (40-150); ANION GAP 14.1 mmol/L (8-16); BLOOD UREA NITROGEN 21 mg/dL (7-26); BUN/CREATININE RATIO 19 (6-25); CALCIUM 7.8 mg/dL (8.4-10.2); CARBON DIOXIDE 23 mmol/L (22-29); CHLORIDE 107 mmol/L (98-107); CREATINE KINASE 34 IU/L (30-200); CREATININE, SERUM 1.12 mg/dL (0.72-1.25); EST GLOMERULAR FILTRATION RATE > 60 ML/MIN (60-); GLUCOSE 147 mg/dL (74-118); POTASSIUM 3.1 mmol/L (3.5-5.1); SODIUM 141 mmol/L (136-145)
[2020-09-09 14:14] LABS: CLARITY,URINE CLEAR (CLEAR); COLOR,URINE YELLOW (YELLOW); LEUKOCYTE ESTERASE ,URINE TRACE (NEGATIVE); NITRITE,URINE NEGATIVE (NEGATIVE); PROTEIN,URINE DIPSTICK TRACE (NEGATIVE)
[2020-09-09 14:15] LABS: KETONES,URINE NEGATIVE (NEGATIVE); URINE UROBILINOGEN 0.2 mg/dL (0.2 - 1)
[2020-09-09 14:28] LABS: BACTERIA,URINE FEW /HPF; EPITHELIAL CELLS,URINE FEW /LPF
[2020-09-09] MEDS ORDERED: SODIUM CHLORIDE 0.9% 50ML 50 ML ONE (14:29)
[2020-09-09] MEDS ORDERED: IOPAMIDOL 370 MG/ML 200 ML INFUS..BTL INJ ONE (14:29)
[2020-09-09] MEDS ORDERED: CEFTRIAXONE SOD 1 GM/50 ML BAG IV SCH (14:45)
[2020-09-09] MEDS: SODIUM CHLORIDE 0.9% 1000ML 1,000 ML IV SCH ×2 (14:56→21:33)
[2020-09-09] MEDS ORDERED: HYDRALAZINE HCL 20 MG/ML VIAL ONE (15:37)
[2020-09-09] MEDS: CEFTRIAXONE SOD 1 GM in SODIUM CHLORIDE 0.9% 50ML 50 ML IV SCH (15:38)
[2020-09-09] MEDS ORDERED: HYDRALAZINE HCL 20 MG/ML VIAL IV ONE (15:45)
[2020-09-09] MEDS ORDERED: POTASSIUM CHLORIDE 20 MEQ TAB CR PO STA (15:49)
[2020-09-09 16:18] VITALS: BP 163/86
[2020-09-09 16:25] VITALS: BP 163/86
[2020-09-09 16:28] VITALS: BP 163/86
[2020-09-09 20:00] VITALS: BP 133/72
[2020-09-09] MEDS ORDERED: DICYCLOMINE HCL20 MG PO (20:06)
[2020-09-09] MEDS ORDERED: TERBINAFINE HC250 MG PO (20:06)
[2020-09-09] MEDS ORDERED: GABAPENTIN100 MG PO (20:06)
[2020-09-09 21:00] VITALS: BP 133/72
[2020-09-09] MEDS ORDERED: HYDRALAZINE HCL 25 MG TAB PO PRN (23:00)
[2020-09-10] VITALS (8 sets, daily range): BP systolic 155–172; BP diastolic 79–87
[2020-09-10] MEDS: ONDANSETRON HCL INJ 2MG/ML 2ML 2 MG/ML VIAL IV PRN (01:41)
[2020-09-10 05:12] LABS: BASOPHILS # (AUTO) 0.1 (0.0-0.1); BASOPHILS % 0.8 % (0.0-1.0); EOSINOPHILS # (AUTO) 0.2 (0.0-0.4); HEMATOCRIT 33.5 % (38.2-49.6); HEMOGLOBIN 11.2 g/dL (14.0-18.0); LYMPHOCYTES # (AUTO) 1.9 (1.0-3.2); LYMPHOCYTES % 24.8 % (18.0-39.1); MEAN CORPUSCULAR HEMOGLOBIN 29.2 pg (28-32); MEAN CORPUSCULAR HGB CONC 33.4 g/dL (31-35); MEAN CORPUSCULAR VOLUME 87.5 fL (81-99); MONOCYTES % 12.7 % (4.4-11.3); NEUTROPHILS # (AUTO) 4.5 (2.1-6.9); NEUTROPHILS % 59.4 % (38.7-80.0); PLATELET COUNT 330 x10e3/uL (140-360); RED BLOOD COUNT 3.83 x10e6/uL (4.3-5.7); RED CELL DISTRIBUTION WIDTH 13.1 % (11.7-14.4)
[2020-09-10 05:55] LABS: ALBUMIN 3.1 g/dL (3.5-5.0); ALBUMIN/GLOBULIN RATIO 0.7 (0.8-2.0); ANION GAP 12.8 mmol/L (8-16); CALCIUM 8.5 mg/dL (8.4-10.2); CREATININE, SERUM 1.24 mg/dL (0.72-1.25); POTASSIUM 3.8 mmol/L (3.5-5.1)
[2020-09-10 06:17] LABS: CREATINE KINASE MB 1.7 ng/mL (0-5.0)
[2020-09-10] MEDS ORDERED: AMLODIPINE BESYLATE 5 MG TAB PO SCH (09:00)
[2020-09-10] MEDS ORDERED: HYDRALAZINE HCL 20 MG/ML VIAL IV PRN (12:45)
[2020-09-10 13:43] LABS: CREATINE KINASE MB 2.3 ng/mL (0-5.0)
[2020-09-10] MEDS ORDERED: SODIUM CHLORIDE 0.9% 50ML 50 ML ONE (15:40)
[2020-09-10] MEDS ORDERED: CEFTRIAXONE SOD 1 GM VIAL ONE (15:40)
[2020-09-10] MEDS: CEFTRIAXONE SOD 1 GM in SODIUM CHLORIDE 0.9% 50ML 50 ML IV SCH (15:42)
[2020-09-11] VITALS: BP 173/78
[2020-09-11 05:50] LABS: BASOPHILS # (AUTO) 0.1 (0.0-0.1); BASOPHILS % 1.2 % (0.0-1.0); EOSINOPHILS # (AUTO) 0.3 (0.0-0.4); EOSINOPHILS % 3.4 % (0.0-6.0); HEMATOCRIT 35.1 % (38.2-49.6); HEMOGLOBIN 11.7 g/dL (14.0-18.0); LYMPHOCYTES # (AUTO) 2.2 (1.0-3.2); LYMPHOCYTES % 29.1 % (18.0-39.1); MEAN CORPUSCULAR HEMOGLOBIN 29.2 pg (28-32); MEAN CORPUSCULAR HGB CONC 33.3 g/dL (31-35); MEAN CORPUSCULAR VOLUME 87.5 fL (81-99); MONOCYTES % 13.1 % (4.4-11.3); NEUTROPHILS % 52.8 % (38.7-80.0); PLATELET COUNT 355 x10e3/uL (140-360); RED BLOOD COUNT 4.01 x10e6/uL (4.3-5.7); RED CELL DISTRIBUTION WIDTH 13.2 % (11.7-14.4)
[2020-09-11 06:10] LABS: ANION GAP 14.3 mmol/L (8-16); BLOOD UREA NITROGEN 17 mg/dL (7-26); BUN/CREATININE RATIO 15 (6-25); CALCIUM 8.6 mg/dL (8.4-10.2); CARBON DIOXIDE 21 mmol/L (22-29); CHLORIDE 106 mmol/L (98-107); CREATININE, SERUM 1.11 mg/dL (0.72-1.25); EST GLOMERULAR FILTRATION RATE > 60 ML/MIN (60-); GLUCOSE 115 mg/dL (74-118); POTASSIUM 3.3 mmol/L (3.5-5.1); SODIUM 138 mmol/L (136-145)
[2020-09-11] MEDS ORDERED: POTASSIUM CHLORIDE 10MEQ EA PO ONE (07:30)
[2020-09-11 08:18] VITALS: BP 142/75
[2020-09-11 08:37] VITALS: BP 142/75
[2020-09-11] MEDS ORDERED: TRIAMTERENE/HCTZ 37.5-25 MG TAB PO SCH (09:00)
[2020-09-11] MEDS ORDERED: NIFEDIPINE CR 30 MG TAB PO SCH ×2 (09:00)
[2020-09-11] MEDS: ONDANSETRON HCL INJ 2MG/ML 2ML 2 MG/ML VIAL IV PRN (09:43)
[2020-09-11 11:13] VITALS: BP 103/81
[2020-09-11] MEDS: CEFTRIAXONE SOD 1 GM in SODIUM CHLORIDE 0.9% 50ML 50 ML IV SCH (15:42)
[2020-09-11] MEDS ORDERED: CEFTRIAXONE SOD 1 GM VIAL ONE (15:46)
[2020-09-11] MEDS ORDERED: SODIUM CHLORIDE 0.9% 50ML 50 ML ONE (15:47)
[2020-09-11 16:15] VITALS: BP 132/71
[2020-09-11] MEDS ORDERED: KEFLEX125 MG/5 M PO (17:17)
[2020-09-11] MEDS ORDERED: BENTYL10 MG/1 ML IV (17:18)
[2020-09-11] MEDS ORDERED: POTASSIUM CHLOR8 MEQ PO (17:19)
[2020-09-11] MEDS ORDERED: MIDODRINE HCL2.5 MG PO (17:21)
[2020-09-11] MEDS ORDERED: NAMENDA5 MG PO (17:22)
== END 2020-09-11 18:23 | disposition home or self-care (01) ==
LOC: ER 14:05 → ERHOLD 14:37 → MED/SURG2 16:07
PROVIDERS: ADMIT Internal Medicine; ATTEND Internal Medicine
DX: R00.1 Bradycardia, unspecified (principal); I44.0 Atrioventricular block, first degree; I16.0 Hypertensive urgency; Z85.46 Personal history of malignant neoplasm of prostate; Z90.79 Acquired absence of other genital organ(s); Z96.641 Presence of right artificial hip joint; M16.11 Unilateral primary osteoarthritis, right hip; G30.9 Alzheimer's disease, unspecified; F02.80 Dementia in other diseases classified elsewhere, unspecified severity, without behavioral disturbance, psychotic disturbance, mood disturbance, and anxiety; N41.9 Inflammatory disease of prostate, unspecified; N39.0 Urinary tract infection, site not specified; E87.6 Hypokalemia; Z20.822 Contact with and (suspected) exposure to COVID-19; I95.1 Orthostatic hypotension
CPT/HCPCS: 36415 ×3; 70450; 71045; 74177; 80048; 80053 ×2; 81001; 82550 ×2; 82553 ×2; 83690; 84443; 84484 ×2; 85025 ×3; 87086; 87186; 93306; 93880; 99251; 99284; G0378 ×3; J0360 ×2; J0696 ×3; J2405 ×3; J7030; Q9967; U0002

== ENCOUNTER 2020-09-24 16:58 | Emergency (ER) | payer MEDICARE ==
[~2020-09-24] VITALS: Ht 170.2 cm; Wt 72.6 kg
[~2020-09-24 16:58] MED LIST changes: +BENTYL10 MG/1 ML IV; +DICYCLOMINE HCL20 MG PO; +GABAPENTIN100 MG PO; +KEFLEX125 MG/5 M PO; +MIDODRINE HCL2.5 MG PO; +NAMENDA5 MG PO; +POTASSIUM CHLOR8 MEQ PO; +TERBINAFINE HC250 MG PO
== END 2020-09-24 20:29 | disposition home or self-care (01) ==
LOC: ER 17:35
DX: S93.402A Sprain of unspecified ligament of left ankle, initial encounter (principal); W18.30XA Fall on same level, unspecified, initial encounter; F03.90 Unspecified dementia, unspecified severity, without behavioral disturbance, psychotic disturbance, mood disturbance, and anxiety; I10 Essential (primary) hypertension; E78.5 Hyperlipidemia, unspecified; N28.9 Disorder of kidney and ureter, unspecified; Z85.46 Personal history of malignant neoplasm of prostate
CPT/HCPCS: 99283

== ENCOUNTER → 2021-04-08 | Outpatient (CLI) | payer MEDICARE | LOC: US 12:30 | PROVIDERS: ATTEND Urology | DX: N28.1 Cyst of kidney, acquired (principal) | CPT/HCPCS: 76770 ==

== ENCOUNTER 2021-09-28 18:35 | Inpatient (IN) | payer MEDICARE ==
[~2021-09-28] VITALS: Ht 172.7 cm; Wt 72.6 kg
[2021-09-28] MEDS ORDERED: SODIUM CHLORIDE 0.9% 1000ML 1,000 ML IV STA ×2 (18:44→21:06)
[2021-09-28 18:56] LABS: BASOPHILS % 0.4 % (0.0-1.0); EOSINOPHILS % 0.3 % (0.0-6.0); HEMATOCRIT 35.1 % (38.2-49.6); HEMOGLOBIN 11.7 g/dL (14.0-18.0); LYMPHOCYTES # (AUTO) 2.1 (1.0-3.2); LYMPHOCYTES % 28.3 % (18.0-39.1); MEAN CORPUSCULAR HEMOGLOBIN 30.8 pg (28-32); MEAN CORPUSCULAR HGB CONC 33.3 g/dL (31-35); MEAN CORPUSCULAR VOLUME 92.4 fL (81-99); MONOCYTES # (AUTO) 0.9 (0.2-0.8); MONOCYTES % 12.9 % (4.4-11.3); NEUTROPHILS # (AUTO) 4.2 (2.1-6.9); NEUTROPHILS % 57.7 % (38.7-80.0); PLATELET COUNT 253 x10e3/uL (140-360); RED CELL DISTRIBUTION WIDTH 13.4 % (11.7-14.4)
[2021-09-28 19:05] LABS: INR 1.02; PROTHROMBIN TIME 14.3 seconds (11.9-14.5)
[2021-09-28 19:06] LABS: PARTIAL THROMBOPLASTIN TIME 27.7 seconds (23.8-35.5)
[2021-09-28 19:15] LABS: ALBUMIN 3.5 g/dL (3.5-5.0); ALBUMIN/GLOBULIN RATIO 0.8 (0.8-2.0); ANION GAP 19.2 mmol/L (8-16); CALCIUM 8.5 mg/dL (8.4-10.2); CREATININE, SERUM 2.25 mg/dL (0.72-1.25); POTASSIUM 4.2 mmol/L (3.5-5.1)
[2021-09-28 19:21] LABS: CREATINE KINASE MB 1.5 ng/mL (0-5.0)
[2021-09-28 19:24] LABS: B-TYPE NATRIURETIC PEPTIDE2 177.2 pg/mL (0-100)
[2021-09-28 19:52] LABS: CLARITY,URINE CLOUDY (CLEAR); COLOR,URINE STRAW (YELLOW); KETONES,URINE TRACE (NEGATIVE); LEUKOCYTE ESTERASE ,URINE SMALL (NEGATIVE); NITRITE,URINE NEGATIVE (NEGATIVE); PROTEIN,URINE DIPSTICK 2+ (NEGATIVE); URINE UROBILINOGEN 0.2 mg/dL (0.2 - 1)
[2021-09-28 20:02] LABS: BACTERIA,URINE MODERATE /HPF
[2021-09-28 21:55] VITALS: BP 155/76
[2021-09-28 23:30] VITALS: BP 155/70
[2021-09-28] MEDS: SODIUM CHLORIDE 0.9% 1000ML 1,000 ML IV SCH (23:47)
[2021-09-29] VITALS (10 sets, daily range): BP systolic 116–191; BP diastolic 60–89
[2021-09-29 05:34] LABS: BASOPHILS % 0.6 % (0.0-1.0); EOSINOPHILS # (AUTO) 0.1 (0.0-0.4); EOSINOPHILS % 2.1 % (0.0-6.0); HEMATOCRIT 32.9 % (38.2-49.6); HEMOGLOBIN 10.7 g/dL (14.0-18.0); LYMPHOCYTES # (AUTO) 2.4 (1.0-3.2); LYMPHOCYTES % 45.2 % (18.0-39.1); MEAN CORPUSCULAR HEMOGLOBIN 30.3 pg (28-32); MEAN CORPUSCULAR HGB CONC 32.5 g/dL (31-35); MEAN CORPUSCULAR VOLUME 93.2 fL (81-99); MONOCYTES # (AUTO) 0.8 (0.2-0.8); MONOCYTES % 14.4 % (4.4-11.3); NEUTROPHILS % 37.5 % (38.7-80.0); PLATELET COUNT 223 x10e3/uL (140-360); RED BLOOD COUNT 3.53 x10e6/uL (4.3-5.7); RED CELL DISTRIBUTION WIDTH 13.2 % (11.7-14.4)
[2021-09-29] MEDS: SODIUM CHLORIDE 0.9% 1000ML 1,000 ML IV SCH ×2 (05:35→11:25)
[2021-09-29 06:09] LABS: ALBUMIN 3.1 g/dL (3.5-5.0); ALBUMIN/GLOBULIN RATIO 0.8 (0.8-2.0); ANION GAP 11.5 mmol/L (8-16); CALCIUM 7.6 mg/dL (8.4-10.2); CREATININE, SERUM 1.96 mg/dL (0.72-1.25); POTASSIUM 3.5 mmol/L (3.5-5.1)
[2021-09-29] MEDS ORDERED: DICYCLOMINE HCL 20 MG TAB PO PRN (14:45)
[2021-09-29] MEDS: MIDODRINE HCL 5 MG TABLET PO SCH (17:00)
[2021-09-29] MEDS ORDERED: SODIUM CHLORIDE 0.9% 1000ML 1,000 ML IV SCH (17:45)
[2021-09-29] MEDS: GABAPENTIN 100 MG CAP PO SCH (17:52)
[2021-09-29] MEDS: MEMANTINE 10 MG TAB PO SCH (17:52)
[2021-09-30] VITALS (8 sets, daily range): BP systolic 133–183; BP diastolic 73–97
[2021-09-30 05:52] LABS: BASOPHILS % 0.7 % (0.0-1.0); EOSINOPHILS # (AUTO) 0.3 (0.0-0.4); EOSINOPHILS % 4.5 % (0.0-6.0); HEMATOCRIT 31.2 % (38.2-49.6); HEMOGLOBIN 10.4 g/dL (14.0-18.0); LYMPHOCYTES # (AUTO) 2.6 (1.0-3.2); LYMPHOCYTES % 46.2 % (18.0-39.1); MEAN CORPUSCULAR HEMOGLOBIN 30.8 pg (28-32); MEAN CORPUSCULAR HGB CONC 33.3 g/dL (31-35); MEAN CORPUSCULAR VOLUME 92.3 fL (81-99); MONOCYTES # (AUTO) 0.8 (0.2-0.8); MONOCYTES % 13.6 % (4.4-11.3); NEUTROPHILS # (AUTO) 1.9 (2.1-6.9); NEUTROPHILS % 34.6 % (38.7-80.0); PLATELET COUNT 201 x10e3/uL (140-360); RED BLOOD COUNT 3.38 x10e6/uL (4.3-5.7); RED CELL DISTRIBUTION WIDTH 13.4 % (11.7-14.4)
[2021-09-30 06:27] LABS: ANION GAP 11.2 mmol/L (8-16); CALCIUM 7.5 mg/dL (8.4-10.2); CREATININE, SERUM 1.94 mg/dL (0.72-1.25); POTASSIUM 3.2 mmol/L (3.5-5.1)
[2021-09-30] MEDS: MIDODRINE HCL 5 MG TABLET PO SCH (08:00)
[2021-09-30] MEDS: GABAPENTIN 100 MG CAP PO SCH ×2 (09:30→17:22)
[2021-09-30] MEDS: MEMANTINE 10 MG TAB PO SCH ×2 (09:30→17:22)
[2021-09-30] MEDS: PANTOPRAZOLE SOD 40 MG TABEC PO SCH (09:30)
[2021-09-30] MEDS: CLONIDINE HCL 0.1 MG TAB PO PRN (17:05)
[2021-10-01 00:34] VITALS: BP 166/103
[2021-10-01] MEDS: CLONIDINE HCL 0.1 MG TAB PO PRN (00:52)
[2021-10-01 05:51] VITALS: BP 144/84
[2021-10-01 07:01] LABS: BASOPHILS % 0.5 % (0.0-1.0); EOSINOPHILS # (AUTO) 0.1 (0.0-0.4); EOSINOPHILS % 3.4 % (0.0-6.0); HEMATOCRIT 34.7 % (38.2-49.6); HEMOGLOBIN 11.3 g/dL (14.0-18.0); LYMPHOCYTES # (AUTO) 1.7 (1.0-3.2); MEAN CORPUSCULAR HEMOGLOBIN 30.5 pg (28-32); MEAN CORPUSCULAR HGB CONC 32.6 g/dL (31-35); MEAN CORPUSCULAR VOLUME 93.5 fL (81-99); MONOCYTES # (AUTO) 0.5 (0.2-0.8); MONOCYTES % 11.4 % (4.4-11.3); NEUTROPHILS # (AUTO) 1.8 (2.1-6.9); NEUTROPHILS % 42.2 % (38.7-80.0); PLATELET COUNT 199 x10e3/uL (140-360); RED BLOOD COUNT 3.71 x10e6/uL (4.3-5.7); RED CELL DISTRIBUTION WIDTH 13.2 % (11.7-14.4)
[2021-10-01 07:14] LABS: ANION GAP 13.3 mmol/L (8-16); CALCIUM 7.8 mg/dL (8.4-10.2); CREATININE, SERUM 1.69 mg/dL (0.72-1.25); POTASSIUM 3.3 mmol/L (3.5-5.1)
[2021-10-01 08:00] VITALS: BP 151/76
[2021-10-01] MEDS: PANTOPRAZOLE SOD 40 MG TABEC PO SCH (08:00)
[2021-10-01 08:28] VITALS: BP 151/76
[2021-10-01] MEDS: MEMANTINE 10 MG TAB PO SCH (09:04)
[2021-10-01] MEDS: GABAPENTIN 100 MG CAP PO SCH (09:04)
[2021-10-01 11:49] VITALS: BP 149/73
== END 2021-10-01 17:32 | disposition home or self-care (01) | DRG 689 ==
LOC: ER 18:49 → ERHOLD 20:21 → MED/SURG3 22:03
PROVIDERS: ADMIT Family Medicine; ATTEND Family Medicine
PROC: XW03396 Introduction of Ceftolozane/Tazobactam Anti-infective into Peripheral Vein, Percutaneous Approach, New Technology Group 6 (ICD-10-PCS; principal; 2021-09-28)
DX: N39.0 Urinary tract infection, site not specified (principal); U07.1 COVID-19; N18.4 Chronic kidney disease, stage 4 (severe); N17.9 Acute kidney failure, unspecified; Z85.46 Personal history of malignant neoplasm of prostate; Z85.820 Personal history of malignant melanoma of skin; E78.5 Hyperlipidemia, unspecified; F03.90 Unspecified dementia, unspecified severity, without behavioral disturbance, psychotic disturbance, mood disturbance, and anxiety; I12.9 Hypertensive chronic kidney disease with stage 1 through stage 4 chronic kidney disease, or unspecified chronic kidney disease; N18.9 Chronic kidney disease, unspecified; G62.9 Polyneuropathy, unspecified; R53.81 Other malaise; Z96.643 Presence of artificial hip joint, bilateral; F99 Mental disorder, not otherwise specified; Z88.8 Allergy status to other drugs, medicaments and biological substances; D64.9 Anemia, unspecified; R31.29 Other microscopic hematuria; N40.1 Benign prostatic hyperplasia with lower urinary tract symptoms; R33.8 Other retention of urine; N31.9 Neuromuscular dysfunction of bladder, unspecified; Z96.649 Presence of unspecified artificial hip joint
CPT/HCPCS: 36415; 51700; 70450; 71045; 72125; 80048; 80053; 81001; 82550; 82553; 83605; 83880; 84484; 85025; 85610; 85730; 87040; 87086; 87186; 93005; 94799; 99251; 99284; J2543; J7030; U0002

== ENCOUNTER 2021-12-16 14:42 | Emergency (ER) | payer MEDICARE ==
[~2021-12-16] VITALS: Ht 170.2 cm; Wt 64.9 kg
== END 2021-12-16 16:25 | disposition home or self-care (01) ==
LOC: ER 14:49
DX: T83.89XA Other specified complication of genitourinary prosthetic devices, implants and grafts, initial encounter (principal); N31.9 Neuromuscular dysfunction of bladder, unspecified; F03.90 Unspecified dementia, unspecified severity, without behavioral disturbance, psychotic disturbance, mood disturbance, and anxiety; N18.9 Chronic kidney disease, unspecified; Z87.440 Personal history of urinary (tract) infections; Y84.6 Urinary catheterization as the cause of abnormal reaction of the patient, or of later complication, without mention of misadventure at the time of the procedure; Z88.6 Allergy status to analgesic agent; Z79.899 Other long term (current) drug therapy; Z85.46 Personal history of malignant neoplasm of prostate
CPT/HCPCS: 51705; 74470; 99283

== ENCOUNTER 2021-12-29 15:16 | Inpatient (IN) | payer MEDICARE ==
[~2021-12-29] VITALS: Ht 171.4 cm; Wt 62.9 kg
[2021-12-29 15:47] LABS: BASOPHILS # (AUTO) 0.1 (0.0-0.1); BASOPHILS % 0.5 % (0.0-1.0); EOSINOPHILS # (AUTO) 0.6 (0.0-0.4); EOSINOPHILS % 4.7 % (0.0-6.0); HEMATOCRIT 31.3 % (38.2-49.6); HEMOGLOBIN 9.7 g/dL (14.0-18.0); LYMPHOCYTES # (AUTO) 2.9 (1.0-3.2); LYMPHOCYTES % 21.3 % (18.0-39.1); MEAN CORPUSCULAR HEMOGLOBIN 29.2 pg (28-32); MEAN CORPUSCULAR VOLUME 94.3 fL (81-99); MONOCYTES # (AUTO) 1.2 (0.2-0.8); MONOCYTES % 8.5 % (4.4-11.3); NEUTROPHILS # (AUTO) 8.8 (2.1-6.9); NEUTROPHILS % 64.6 % (38.7-80.0); PLATELET COUNT 409 x10e3/uL (140-360); RED BLOOD COUNT 3.32 x10e6/uL (4.3-5.7); RED CELL DISTRIBUTION WIDTH 13.2 % (11.7-14.4)
[2021-12-29 15:53] LABS: INR 1.11; PROTHROMBIN TIME 15.3 seconds (11.9-14.5)
[2021-12-29 15:54] LABS: PARTIAL THROMBOPLASTIN TIME 33.2 seconds (23.8-35.5)
[2021-12-29 16:03] LABS: ALBUMIN 2.8 g/dL (3.5-5.0); ALBUMIN/GLOBULIN RATIO 0.6 (0.8-2.0); ANION GAP 15.2 mmol/L (8-16); CALCIUM 8.1 mg/dL (8.4-10.2); CREATININE, SERUM 1.71 mg/dL (0.72-1.25); MAGNESIUM 2.1 MG/DL (1.3-2.1); POTASSIUM 3.2 mmol/L (3.5-5.1)
[2021-12-29 17:09] LABS: CLARITY,URINE HAZY (CLEAR); COLOR,URINE YELLOW (YELLOW); KETONES,URINE NEGATIVE (NEGATIVE); LEUKOCYTE ESTERASE ,URINE MODERATE (NEGATIVE); NITRITE,URINE NEGATIVE (NEGATIVE); PROTEIN,URINE DIPSTICK TRACE (NEGATIVE); URINE UROBILINOGEN 0.2 mg/dL (0.2 - 1)
[2021-12-29] MEDS ORDERED: ONDANSETRON HCL INJ 2MG/ML 2ML 2 MG/ML VIAL IV PRN (17:15)
[2021-12-29] MEDS ORDERED: SODIUM CHLORIDE 0.9% 1000ML 1,000 ML IV ONE (17:15)
[2021-12-29 17:16] LABS: BACTERIA,URINE MODERATE /HPF
[2021-12-29] MEDS: FAMOTIDINE 20 MG/2 ML VIAL IV SCH (17:30)
[2021-12-29] MEDS: HYDRALAZINE HCL 20 MG/ML VIAL IV PRN (17:31)
[2021-12-29 21:41] LABS: CREATINE KINASE 35 IU/L (30-200)
[2021-12-29 21:45] VITALS: BP 190/84
[2021-12-30] VITALS (7 sets, daily range): BP systolic 155–188; BP diastolic 71–107
[2021-12-30] MEDS ORDERED: HYDRALAZINE HCL 20 MG/ML VIAL IV ONE (02:00)
[2021-12-30] MEDS ORDERED: VIT D PO (02:42)
[2021-12-30] MEDS: FAMOTIDINE 20 MG/2 ML VIAL IV SCH ×2 (05:34→16:35)
[2021-12-30 06:40] LABS: BASOPHILS # (AUTO) 0.1 (0.0-0.1); BASOPHILS % 0.8 % (0.0-1.0); EOSINOPHILS # (AUTO) 0.6 (0.0-0.4); EOSINOPHILS % 5.2 % (0.0-6.0); HEMATOCRIT 32.1 % (38.2-49.6); HEMOGLOBIN 10.2 g/dL (14.0-18.0); LYMPHOCYTES # (AUTO) 2.3 (1.0-3.2); LYMPHOCYTES % 21.8 % (18.0-39.1); MEAN CORPUSCULAR HEMOGLOBIN 29.2 pg (28-32); MEAN CORPUSCULAR HGB CONC 31.8 g/dL (31-35); MONOCYTES # (AUTO) 1.1 (0.2-0.8); MONOCYTES % 10.4 % (4.4-11.3); NEUTROPHILS # (AUTO) 6.4 (2.1-6.9); NEUTROPHILS % 61.2 % (38.7-80.0); PLATELET COUNT 410 x10e3/uL (140-360); RED BLOOD COUNT 3.49 x10e6/uL (4.3-5.7); RED CELL DISTRIBUTION WIDTH 13.3 % (11.7-14.4)
[2021-12-30 07:20] LABS: ALBUMIN 2.8 g/dL (3.5-5.0); ALBUMIN/GLOBULIN RATIO 0.6 (0.8-2.0); ANION GAP 14.5 mmol/L (8-16); CALCIUM 7.9 mg/dL (8.4-10.2); CREATININE, SERUM 1.36 mg/dL (0.72-1.25); POTASSIUM 3.5 mmol/L (3.5-5.1)
[2021-12-30 07:48] LABS: CREATINE KINASE MB 0.9 ng/mL (0-5.0)
[2021-12-30] MEDS: MEMANTINE 10 MG TAB PO SCH ×2 (09:06→16:35)
[2021-12-30] MEDS: GABAPENTIN 100 MG CAP PO SCH ×2 (09:06→16:35)
[2021-12-30] MEDS: CHOLECALCIFEROL 1,000 UNIT TAB PO SCH (09:07)
[2021-12-30] MEDS: DICYCLOMINE HCL 20 MG TAB PO SCH ×2 (11:43→16:35)
[2021-12-30 15:20] LABS: CREATINE KINASE MB 0.9 ng/mL (0-5.0)
[2021-12-30] MEDS: HYDRALAZINE HCL 20 MG/ML VIAL IV PRN (20:24)
[2021-12-31] VITALS (7 sets, daily range): BP systolic 137–155; BP diastolic 59–88
[2021-12-31] MEDS: DICYCLOMINE HCL 20 MG TAB PO SCH ×5 (00:07→23:34)
[2021-12-31] MEDS: FAMOTIDINE 20 MG/2 ML VIAL IV SCH ×2 (06:04→16:19)
[2021-12-31] MEDS: MEMANTINE 10 MG TAB PO SCH ×2 (09:12→16:19)
[2021-12-31] MEDS: GABAPENTIN 100 MG CAP PO SCH ×2 (09:12→16:19)
[2021-12-31] MEDS: CHOLECALCIFEROL 1,000 UNIT TAB PO SCH (09:13)
[2022-01-01] VITALS: BP 149/58
[2022-01-01] MEDS: FAMOTIDINE 20 MG/2 ML VIAL IV SCH ×2 (05:08→17:00)
[2022-01-01] MEDS: DICYCLOMINE HCL 20 MG TAB PO SCH ×4 (05:26→23:44)
[2022-01-01 07:36] LABS: ANION GAP 16.7 mmol/L (8-16); CALCIUM 8.5 mg/dL (8.4-10.2); CREATININE, SERUM 1.76 mg/dL (0.72-1.25); POTASSIUM 3.7 mmol/L (3.5-5.1)
[2022-01-01 08:28] VITALS: BP 127/111
[2022-01-01] MEDS: GABAPENTIN 100 MG CAP PO SCH ×2 (08:33→17:00)
[2022-01-01] MEDS: CHOLECALCIFEROL 1,000 UNIT TAB PO SCH (08:33)
[2022-01-01] MEDS: MEMANTINE 10 MG TAB PO SCH ×2 (08:33→17:00)
[2022-01-01 08:37] VITALS: BP 127/111
[2022-01-01 12:04] VITALS: BP 137/92
[2022-01-01 16:34] VITALS: BP 162/84
[2022-01-01] MEDS: ENOXAPARIN 30 MG/0.3 ML SYR SC SCH (17:00)
[2022-01-01 21:00] VITALS: BP 162/84
[2022-01-02] VITALS: BP 122/88
[2022-01-02 04:00] VITALS: BP 145/85
[2022-01-02] MEDS: DICYCLOMINE HCL 20 MG TAB PO SCH ×3 (05:51→17:26)
[2022-01-02] MEDS: FAMOTIDINE 20 MG/2 ML VIAL IV SCH ×2 (05:52→16:44)
[2022-01-02 06:35] LABS: BASOPHILS # (AUTO) 0.1 (0.0-0.1); BASOPHILS % 0.6 % (0.0-1.0); EOSINOPHILS # (AUTO) 0.2 (0.0-0.4); EOSINOPHILS % 1.1 % (0.0-6.0); HEMATOCRIT 33.9 % (38.2-49.6); HEMOGLOBIN 10.8 g/dL (14.0-18.0); LYMPHOCYTES # (AUTO) 2.2 (1.0-3.2); LYMPHOCYTES % 15.2 % (18.0-39.1); MEAN CORPUSCULAR HEMOGLOBIN 29.3 pg (28-32); MEAN CORPUSCULAR HGB CONC 31.9 g/dL (31-35); MEAN CORPUSCULAR VOLUME 92.1 fL (81-99); MONOCYTES % 14.1 % (4.4-11.3); NEUTROPHILS # (AUTO) 9.8 (2.1-6.9); NEUTROPHILS % 68.4 % (38.7-80.0); PLATELET COUNT 457 x10e3/uL (140-360); RED BLOOD COUNT 3.68 x10e6/uL (4.3-5.7); RED CELL DISTRIBUTION WIDTH 14.1 % (11.7-14.4)
[2022-01-02 06:56] LABS: ANION GAP 15.5 mmol/L (8-16); CREATININE, SERUM 2.07 mg/dL (0.72-1.25); POTASSIUM 3.5 mmol/L (3.5-5.1)
[2022-01-02 07:52] VITALS: BP 130/71
[2022-01-02 08:37] VITALS: BP 130/71
[2022-01-02] MEDS: CHOLECALCIFEROL 1,000 UNIT TAB PO SCH (08:41)
[2022-01-02] MEDS: MEMANTINE 10 MG TAB PO SCH ×2 (08:41→17:00)
[2022-01-02] MEDS: GABAPENTIN 100 MG CAP PO SCH ×2 (08:41→17:00)
[2022-01-02 12:09] VITALS: BP 122/67
[2022-01-02 15:58] VITALS: BP 149/83
[2022-01-02] MEDS: ENOXAPARIN 30 MG/0.3 ML SYR SC SCH (16:47)
[2022-01-03] VITALS (8 sets, daily range): BP systolic 98–154; BP diastolic 62–99
[2022-01-03] MEDS: DICYCLOMINE HCL 20 MG TAB PO SCH ×4 (00:49→17:35)
[2022-01-03] MEDS: FAMOTIDINE 20 MG/2 ML VIAL IV SCH ×2 (05:43→16:30)
[2022-01-03 06:10] LABS: BASOPHILS # (AUTO) 0.1 (0.0-0.1); BASOPHILS % 0.6 % (0.0-1.0); EOSINOPHILS # (AUTO) 0.1 (0.0-0.4); EOSINOPHILS % 0.5 % (0.0-6.0); HEMATOCRIT 33.6 % (38.2-49.6); HEMOGLOBIN 10.8 g/dL (14.0-18.0); LYMPHOCYTES # (AUTO) 2.6 (1.0-3.2); LYMPHOCYTES % 17.5 % (18.0-39.1); MEAN CORPUSCULAR HEMOGLOBIN 29.1 pg (28-32); MEAN CORPUSCULAR HGB CONC 32.1 g/dL (31-35); MEAN CORPUSCULAR VOLUME 90.6 fL (81-99); MONOCYTES # (AUTO) 1.7 (0.2-0.8); MONOCYTES % 11.5 % (4.4-11.3); NEUTROPHILS # (AUTO) 10.2 (2.1-6.9); NEUTROPHILS % 69.1 % (38.7-80.0); PLATELET COUNT 475 x10e3/uL (140-360); RED BLOOD COUNT 3.71 x10e6/uL (4.3-5.7); RED CELL DISTRIBUTION WIDTH 13.8 % (11.7-14.4)
[2022-01-03] MEDS: ACETAMINOPHEN 325 MG TAB PO PRN (06:49)
[2022-01-03 06:51] LABS: ALBUMIN 2.7 g/dL (3.5-5.0); ALBUMIN/GLOBULIN RATIO 0.5 (0.8-2.0); ANION GAP 23.2 mmol/L (8-16); CALCIUM 8.4 mg/dL (8.4-10.2); CREATININE, SERUM 2.3 mg/dL (0.72-1.25); MAGNESIUM 2.3 MG/DL (1.3-2.1); PHOSPHORUS 2.2 MG/DL (2.3-4.7); POTASSIUM 3.2 mmol/L (3.5-5.1)
[2022-01-03] MEDS: GABAPENTIN 100 MG CAP PO SCH ×2 (08:06→16:06)
[2022-01-03] MEDS: MEMANTINE 10 MG TAB PO SCH ×2 (08:06→16:06)
[2022-01-03] MEDS: CHOLECALCIFEROL 1,000 UNIT TAB PO SCH (08:06)
[2022-01-03] MEDS ORDERED: POTASSIUM CHLORIDE 20 MEQ TAB CR PO ONE (13:00)
[2022-01-03] MEDS: ENOXAPARIN 30 MG/0.3 ML SYR SC SCH (16:30)
[2022-01-03] MEDS ORDERED: D5.45%NS/KCL 20MEQ 1,000 ML IV SCH (18:30)
[2022-01-03] MEDS: DEXTROSE 5% IV SCH (21:37)
[2022-01-03] MEDS: SODIUM BICARBONATE 8.4% IV SCH (21:37)
[2022-01-03] MEDS: POTASSIUM CHL IV SCH (21:37)
[2022-01-04] VITALS (8 sets, daily range): BP systolic 135–159; BP diastolic 61–107
[2022-01-04] MEDS: DICYCLOMINE HCL 20 MG TAB PO SCH ×5 (00:25→23:50)
[2022-01-04] MEDS: FAMOTIDINE 20 MG/2 ML VIAL IV SCH ×2 (05:30→17:15)
[2022-01-04] MEDS: DEXTROSE 5% IV SCH ×2 (06:05→15:47)
[2022-01-04] MEDS: SODIUM BICARBONATE 8.4% IV SCH ×2 (06:05→15:47)
[2022-01-04] MEDS: POTASSIUM CHL IV SCH ×2 (06:05→15:47)
[2022-01-04 06:33] LABS: BASOPHILS # (AUTO) 0.1 (0.0-0.1); BASOPHILS % 0.6 % (0.0-1.0); EOSINOPHILS # (AUTO) 0.8 (0.0-0.4); EOSINOPHILS % 8.5 % (0.0-6.0); HEMATOCRIT 32.8 % (38.2-49.6); LYMPHOCYTES # (AUTO) 2.4 (1.0-3.2); LYMPHOCYTES % 25.1 % (18.0-39.1); MEAN CORPUSCULAR HEMOGLOBIN 28.6 pg (28-32); MEAN CORPUSCULAR HGB CONC 30.5 g/dL (31-35); MEAN CORPUSCULAR VOLUME 93.7 fL (81-99); MONOCYTES % 9.9 % (4.4-11.3); NEUTROPHILS # (AUTO) 5.3 (2.1-6.9); NEUTROPHILS % 55.3 % (38.7-80.0); PLATELET COUNT 399 x10e3/uL (140-360); RED CELL DISTRIBUTION WIDTH 14.1 % (11.7-14.4)
[2022-01-04 06:53] LABS: ANION GAP 18.6 mmol/L (8-16); CALCIUM 8.1 mg/dL (8.4-10.2); CREATININE, SERUM 2.19 mg/dL (0.72-1.25); POTASSIUM 3.6 mmol/L (3.5-5.1)
[2022-01-04] MEDS: CHOLECALCIFEROL 1,000 UNIT TAB PO SCH (09:00)
[2022-01-04] MEDS: MEMANTINE 10 MG TAB PO SCH ×2 (09:00→18:00)
[2022-01-04] MEDS ORDERED: SODIUM BICARBONATE 650 MG TAB PO SCH (09:00)
[2022-01-04] MEDS: GABAPENTIN 100 MG CAP PO SCH ×2 (09:00→18:25)
[2022-01-04] MEDS: ENOXAPARIN 30 MG/0.3 ML SYR SC SCH (18:24)
[2022-01-05 04:00] VITALS: BP 170/83
[2022-01-05] MEDS: FAMOTIDINE 20 MG/2 ML VIAL IV SCH ×2 (05:17→17:12)
[2022-01-05] MEDS: DICYCLOMINE HCL 20 MG TAB PO SCH ×4 (05:17→23:31)
[2022-01-05 06:15] LABS: ALBUMIN 2.2 g/dL (3.5-5.0); ALBUMIN/GLOBULIN RATIO 0.5 (0.8-2.0); ANION GAP 13.9 mmol/L (8-16); CALCIUM 8.1 mg/dL (8.4-10.2); CREATININE, SERUM 1.88 mg/dL (0.72-1.25); POTASSIUM 3.9 mmol/L (3.5-5.1)
[2022-01-05 08:00] VITALS: BP 157/75
[2022-01-05] MEDS: GABAPENTIN 100 MG CAP PO SCH ×2 (09:35→17:12)
[2022-01-05] MEDS: CHOLECALCIFEROL 1,000 UNIT TAB PO SCH (09:35)
[2022-01-05] MEDS: MEMANTINE 10 MG TAB PO SCH ×2 (09:35→17:12)
[2022-01-05 11:35] VITALS: BP 151/89
[2022-01-05] MEDS ORDERED: SODIUM CHLORIDE 0.9% 250ML 250 ML ONE (14:13)
[2022-01-05 16:02] VITALS: BP 156/73
[2022-01-05] MEDS: ENOXAPARIN 30 MG/0.3 ML SYR SC SCH (17:12)
[2022-01-05 20:00] VITALS: BP 143/77
[2022-01-05 20:58] VITALS: BP 143/77
[2022-01-06 04:00] VITALS: BP 145/85
[2022-01-06] MEDS: FAMOTIDINE 20 MG/2 ML VIAL IV SCH ×2 (05:12→16:44)
[2022-01-06] MEDS: DICYCLOMINE HCL 20 MG TAB PO SCH ×3 (05:12→18:00)
[2022-01-06] MEDS ORDERED: OLANZAPINE 5 MG TAB PO ONE (07:30)
[2022-01-06 08:10] VITALS: BP 145/82
[2022-01-06 08:37] VITALS: BP 145/82
[2022-01-06] MEDS: MEMANTINE 10 MG TAB PO SCH ×2 (09:00→17:00)
[2022-01-06] MEDS: CHOLECALCIFEROL 1,000 UNIT TAB PO SCH (09:00)
[2022-01-06] MEDS: GABAPENTIN 100 MG CAP PO SCH ×2 (09:00→17:00)
[2022-01-06] MEDS: OLANZAPINE 5 MG TAB PO SCH ×2 (12:00→18:00)
[2022-01-06 12:07] VITALS: BP 149/74
[2022-01-06 15:33] VITALS: BP 134/69
[2022-01-06] MEDS: ENOXAPARIN 30 MG/0.3 ML SYR SC SCH (16:43)
[2022-01-06 23:30] VITALS: BP 134/69
[2022-01-07] VITALS (10 sets, daily range): BP systolic 125–172; BP diastolic 66–109
[2022-01-07] MEDS: DICYCLOMINE HCL 20 MG TAB PO SCH ×4 (00:23→18:00)
[2022-01-07] MEDS: OLANZAPINE 5 MG TAB PO SCH ×4 (00:23→18:00)
[2022-01-07] MEDS: FAMOTIDINE 20 MG/2 ML VIAL IV SCH ×2 (05:23→18:00)
[2022-01-07] MEDS: GABAPENTIN 100 MG CAP PO SCH ×2 (09:00→17:00)
[2022-01-07] MEDS: MEMANTINE 10 MG TAB PO SCH ×2 (09:00→17:00)
[2022-01-07] MEDS: CHOLECALCIFEROL 1,000 UNIT TAB PO SCH (09:00)
[2022-01-07] MEDS: ENOXAPARIN 30 MG/0.3 ML SYR SC SCH (17:00)
[2022-01-08] VITALS (8 sets, daily range): BP systolic 145–176; BP diastolic 66–90
[2022-01-08] MEDS: OLANZAPINE 5 MG TAB PO SCH ×5 (06:00→23:34)
[2022-01-08] MEDS: DICYCLOMINE HCL 20 MG TAB PO SCH ×5 (06:00→23:34)
[2022-01-08] MEDS: FAMOTIDINE 20 MG/2 ML VIAL IV SCH ×2 (06:23→17:19)
[2022-01-08 07:58] LABS: BASOPHILS # (AUTO) 0.1 (0.0-0.1); BASOPHILS % 0.8 % (0.0-1.0); EOSINOPHILS # (AUTO) 1.1 (0.0-0.4); EOSINOPHILS % 11.5 % (0.0-6.0); HEMATOCRIT 33.2 % (38.2-49.6); HEMOGLOBIN 9.9 g/dL (14.0-18.0); LYMPHOCYTES % 31.1 % (18.0-39.1); MEAN CORPUSCULAR HEMOGLOBIN 28.8 pg (28-32); MEAN CORPUSCULAR HGB CONC 29.8 g/dL (31-35); MEAN CORPUSCULAR VOLUME 96.5 fL (81-99); MONOCYTES # (AUTO) 0.9 (0.2-0.8); MONOCYTES % 9.5 % (4.4-11.3); NEUTROPHILS # (AUTO) 4.4 (2.1-6.9); NEUTROPHILS % 46.4 % (38.7-80.0); PLATELET COUNT 408 x10e3/uL (140-360); RED BLOOD COUNT 3.44 x10e6/uL (4.3-5.7); RED CELL DISTRIBUTION WIDTH 14.2 % (11.7-14.4)
[2022-01-08 09:36] LABS: ALBUMIN 2.4 g/dL (3.5-5.0); ALBUMIN/GLOBULIN RATIO 0.5 (0.8-2.0); ANION GAP 13.6 mmol/L (8-16); CALCIUM 8.1 mg/dL (8.4-10.2); CREATININE, SERUM 2.17 mg/dL (0.72-1.25); POTASSIUM 3.6 mmol/L (3.5-5.1)
[2022-01-08] MEDS: GABAPENTIN 100 MG CAP PO SCH ×2 (09:50→17:18)
[2022-01-08] MEDS: CHOLECALCIFEROL 1,000 UNIT TAB PO SCH (09:50)
[2022-01-08] MEDS: MEMANTINE 10 MG TAB PO SCH ×2 (09:51→17:18)
[2022-01-08] MEDS: ACETAMINOPHEN 325 MG TAB PO PRN (21:00)
[2022-01-08] MEDS: HYDRALAZINE HCL 20 MG/ML VIAL IV PRN (22:31)
[2022-01-09] VITALS (10 sets, daily range): BP systolic 130–181; BP diastolic 67–92
[2022-01-09] MEDS: OLANZAPINE 5 MG TAB PO SCH ×3 (05:16→17:43)
[2022-01-09] MEDS: DICYCLOMINE HCL 20 MG TAB PO SCH ×4 (05:16→23:44)
[2022-01-09] MEDS: FAMOTIDINE 20 MG/2 ML VIAL IV SCH ×2 (05:19→17:28)
[2022-01-09] MEDS: MEMANTINE 10 MG TAB PO SCH ×2 (09:49→17:28)
[2022-01-09] MEDS: CHOLECALCIFEROL 1,000 UNIT TAB PO SCH (09:49)
[2022-01-09] MEDS: GABAPENTIN 100 MG CAP PO SCH ×2 (09:49→17:27)
[2022-01-09] MEDS: SODIUM BICARBONATE 8.4% 50 ML in DEXTROSE 5% 1,000 ML IV SCH (20:46)
[2022-01-10] VITALS (7 sets, daily range): BP systolic 92–176; BP diastolic 55–112
[2022-01-10] MEDS: HYDRALAZINE HCL 20 MG/ML VIAL IV PRN (03:48)
[2022-01-10] MEDS: ACETAMINOPHEN 325 MG TAB PO PRN (04:09)
[2022-01-10] MEDS: FAMOTIDINE 20 MG/2 ML VIAL IV SCH ×2 (05:32→17:46)
[2022-01-10] MEDS: DICYCLOMINE HCL 20 MG TAB PO SCH ×4 (05:35→23:03)
[2022-01-10 06:22] LABS: BASOPHILS # (AUTO) 0.1 (0.0-0.1); BASOPHILS % 0.5 % (0.0-1.0); EOSINOPHILS # (AUTO) 0.8 (0.0-0.4); EOSINOPHILS % 5.5 % (0.0-6.0); HEMOGLOBIN 10.4 g/dL (14.0-18.0); LYMPHOCYTES # (AUTO) 2.5 (1.0-3.2); LYMPHOCYTES % 18.4 % (18.0-39.1); MEAN CORPUSCULAR HEMOGLOBIN 28.6 pg (28-32); MEAN CORPUSCULAR HGB CONC 29.7 g/dL (31-35); MEAN CORPUSCULAR VOLUME 96.2 fL (81-99); MONOCYTES # (AUTO) 1.4 (0.2-0.8); MONOCYTES % 9.9 % (4.4-11.3); NEUTROPHILS % 65.2 % (38.7-80.0); PLATELET COUNT 489 x10e3/uL (140-360); RED BLOOD COUNT 3.64 x10e6/uL (4.3-5.7); RED CELL DISTRIBUTION WIDTH 14.1 % (11.7-14.4)
[2022-01-10 06:49] LABS: ALBUMIN 2.7 g/dL (3.5-5.0); ALBUMIN/GLOBULIN RATIO 0.5 (0.8-2.0); ANION GAP 17.6 mmol/L (8-16); CALCIUM 8.3 mg/dL (8.4-10.2); CREATININE, SERUM 2.09 mg/dL (0.72-1.25); POTASSIUM 3.6 mmol/L (3.5-5.1)
[2022-01-10] MEDS ORDERED: FLUCONAZOLE 100 MG TAB PO SCH (09:00)
[2022-01-10] MEDS: CHOLECALCIFEROL 1,000 UNIT TAB PO SCH (09:48)
[2022-01-10] MEDS: GABAPENTIN 100 MG CAP PO SCH ×2 (09:48→17:46)
[2022-01-10] MEDS: MEMANTINE 10 MG TAB PO SCH ×2 (09:48→17:46)
[2022-01-10] MEDS: OLANZAPINE 5 MG TAB PO SCH ×2 (09:48→17:46)
[2022-01-10] MEDS: SODIUM BICARBONATE 8.4% 50 ML in DEXTROSE 5% 1,000 ML IV SCH (12:22)
[2022-01-10] MEDS: FLUCONAZOLE 200 MG/100 ML 100 ML IV SCH (17:46)
[2022-01-10] MEDS ORDERED: HALOPERIDOL LACTATE 5 MG/ML VIAL IM PRN (22:45)
[2022-01-11] VITALS (7 sets, daily range): BP systolic 89–183; BP diastolic 52–105
[2022-01-11] MEDS: SODIUM BICARBONATE 8.4% 50 ML in DEXTROSE 5% 1,000 ML IV SCH (00:34)
[2022-01-11] MEDS: HYDRALAZINE HCL 20 MG/ML VIAL IV PRN (02:14)
[2022-01-11] MEDS: FAMOTIDINE 20 MG/2 ML VIAL IV SCH ×2 (05:15→17:24)
[2022-01-11] MEDS: DICYCLOMINE HCL 20 MG TAB PO SCH ×3 (05:19→17:11)
[2022-01-11] MEDS: MEMANTINE 10 MG TAB PO SCH ×2 (09:00→17:00)
[2022-01-11] MEDS: OLANZAPINE 5 MG TAB PO SCH ×3 (09:00→17:00)
[2022-01-11] MEDS: GABAPENTIN 100 MG CAP PO SCH ×2 (09:00→17:00)
[2022-01-11] MEDS: CHOLECALCIFEROL 1,000 UNIT TAB PO SCH (09:00)
[2022-01-11] MEDS: FLUCONAZOLE 200 MG/100 ML 100 ML IV SCH (17:24)
== END 2022-01-11 20:28 | disposition hospice, home (50) | DRG 689 ==
LOC: ER 15:30 → ERHOLD 17:19 → MED/SURG3 21:45 → OBSVTOIN 12-31 08:08 → MED/SURG3 01-05 10:55
PROVIDERS: ADMIT Family Medicine; ATTEND Family Medicine
PROC: 0T2BX0Z Change Drainage Device in Bladder, External Approach (ICD-10-PCS; principal; 2022-01-07)
DX: N39.0 Urinary tract infection, site not specified (principal); G93.41 Metabolic encephalopathy; F05 Delirium due to known physiological condition; E87.2 Acidosis; I47.2 Ventricular tachycardia; E87.0 Hyperosmolality and hypernatremia; B37.49 Other urogenital candidiasis; N17.9 Acute kidney failure, unspecified; E44.0 Moderate protein-calorie malnutrition; R55 Syncope and collapse; W18.2XXA Fall in (into) shower or empty bathtub, initial encounter; Y93.89 Activity, other specified; Y92.012 Bathroom of single-family (private) house as the place of occurrence of the external cause; F03.90 Unspecified dementia, unspecified severity, without behavioral disturbance, psychotic disturbance, mood disturbance, and anxiety; B96.5 Pseudomonas (aeruginosa) (mallei) (pseudomallei) as the cause of diseases classified elsewhere; I12.9 Hypertensive chronic kidney disease with stage 1 through stage 4 chronic kidney disease, or unspecified chronic kidney disease; N18.30 Chronic kidney disease, stage 3 unspecified; D64.9 Anemia, unspecified; K21.9 Gastro-esophageal reflux disease without esophagitis; N31.2 Flaccid neuropathic bladder, not elsewhere classified; N39.498 Other specified urinary incontinence; N40.1 Benign prostatic hyperplasia with lower urinary tract symptoms; R33.8 Other retention of urine; C61 Malignant neoplasm of prostate; N31.9 Neuromuscular dysfunction of bladder, unspecified; N13.8 Other obstructive and reflux uropathy; N20.0 Calculus of kidney; Z20.822 Contact with and (suspected) exposure to COVID-19; Z51.5 Encounter for palliative care; Z93.6 Other artificial openings of urinary tract status; Z68.21 Body mass index [BMI] 21.0-21.9, adult
CPT/HCPCS: 36415; 70450; 71045; 71046; 72125; 72170; 74176; 80048; 80053; 81001; 82550; 82553; 83735; 83880; 84100; 84484; 85025; 85610; 85730; 87086; 87186; 93005; 94799; 97139; 99251; 99284; G0378; J0360; J1450; J1650; J2543; J3480; J7030; J7050; J7070